=== PATIENT | male | born 1955 | race African-American/Black ===

== ENCOUNTER 2018-02-27 07:36 | Emergency (ER) | payer MEDICAID, OTHER ==
[~2018-02-27] VITALS: Ht 188 cm; Wt 100.0 kg
[2018-02-27] MEDS ORDERED: IBUPROFEN 600MG TABLET PO ONE (08:30)
[2018-02-27 10:08] VITALS: BP 128/68
== END 2018-02-27 10:12 | disposition home or self-care (01) ==
LOC: ER 08:16
DX: M16.0 Bilateral primary osteoarthritis of hip (principal); I10 Essential (primary) hypertension
CPT/HCPCS: 72170; 99284

== ENCOUNTER 2019-09-01 09:59 | Emergency (ER) | payer MEDICAID ==
[~2019-09-01] VITALS: Ht 175.3 cm; Wt 81.0 kg
[2019-09-01 12:46] VITALS: BP 145/95
== END 2019-09-01 13:58 | disposition home or self-care (01) ==
LOC: ER 09:59
DX: S22.41XA Multiple fractures of ribs, right side, initial encounter for closed fracture (principal); S20.211A Contusion of right front wall of thorax, initial encounter; W21.89XA Striking against or struck by other sports equipment, initial encounter; Y93.89 Activity, other specified; Y92.89 Other specified places as the place of occurrence of the external cause; Y99.8 Other external cause status; I10 Essential (primary) hypertension; F17.290 Nicotine dependence, other tobacco product, uncomplicated
CPT/HCPCS: 71101; 99283